=== PATIENT | female | born 1970 | race African-American/Black ===

== ENCOUNTER 2019-05-28 12:13 | Emergency (ER) | payer BC, MEDICAID ==
[~2019-05-28] VITALS: Ht 162.6 cm; Wt 99.8 kg
--- NOTE | 2019-05-28 12:28 | NUR ---
ED Nurse Note: Pt walked in from home c/o lower back pain x 1 week. Pt reports urinary frequency x 2 days. Denies fever/chills/n/v/d. Respirations even and unlabored on room air. Vitals stable as documented.
[2019-05-28 12:29] VITALS: BP 129/78
[2019-05-28] MEDS ORDERED: Methocarbamol 500mg tab ORAL ONE (13:30)
[2019-05-28 13:39] LABS: APPEARANCE,URINE CLEAR; BILIRUBIN, URINE NEGATIVE (NEGATIVE); COLOR,URINE PALE YELLOW; GLUCOSE, URINE (UA) NEGATIVE (NEGATIVE); KETONES,URINE 1+ (NEGATIVE); LEUKOCYTE ESTERASE ,URINE NEGATIVE (NEGATIVE); NITRITE,URINE NEGATIVE (NEGATIVE); PH,URINE 5 (4.5-8.0); PROTEIN,URINE 1+ (NEGATIVE); UROBILINOGEN,URINE NORMAL MG/DL (0.0-1.0)
--- NOTE | 2019-05-28 13:41 | NUR ---
ED Nurse Note: pt in radiology
--- NOTE | 2019-05-28 13:48 | Emergency Room Report ---
History of Present Illness General Chief Complaint: Back Pain-No Injury Source: Patient Present Illness HPI 48-year-old female presents to the emergency department complaining of 10 out of 10 severity low back pain that is been progressive x1 week. Patient denies appreciable trauma or fall. She denies strenuous activities. She reports she has had sciatica in the past and this is different presentation. She denies night sweats or history of cancer. Patient denies recent spinal procedures. She also is reporting having urinary frequency x2 days she denies dysuria, hematuria or urgency. She denies fevers or chills. Denies nausea, vomiting or abdominal pain. Patient states that she has been taking Aleve and Tylenol at home with no relief she states she tried tramadol from her friend which provides with some relief of her symptoms but did not take them away completely. Denies numbness tingling or loss of sensation or gross motor movements of the extremities, incontinence of bowel or bladder. Denies CP, Palpitations, LOC, AMS, dizziness, Changes in Vision, weakness or a sudden severe headache. Allergies: Coded Allergies: LATEX, NATURAL RUBBER (Verified Allergy, Unknown, 05/28/19) Patient History Past Medical History: see triage record Past Surgical History: none Pertinent Family History: none Last Menstrual Period: 05/15/19 Now: No Reviewed Nursing Documentation: PMH: Agreed; PSxH: Agreed Nursing Documentation-PM Past Medical History: No History, Except For Review of Systems All Other Systems: negative except mentioned in HPI Physical Exam Vital Signs Date Time Temp Pulse Resp B/P (MAP) Pulse Ox O2 Delivery O2 Flow Rate FiO2 05/28/19 12:19 98.4 76 16 129/78 (95) 100 Room Air Sp02 EP Interpretation: reviewed, normal General Appearance: no apparent distress, alert, GCS 15, non-toxic Head: normocephalic, atraumatic Eyes: bilateral eye normal inspection, bilateral eye PERRL ENT: hearing grossly normal, normal voice Neck: full range of motion Respiratory: lungs clear, normal breath sounds, speaking full sentences Cardiovascular #1: regular rate, rhythm Gastrointestinal: normal bowel sounds, non tender, soft, non-distended, no guarding Genitourinary: normal inspection, no CVA tenderness Musculoskeletal: normal range of motion, gait/station normal, tender - both left and right lumbar paraspinal and upper gluteal TTP, FROM with exacerbation of pain temporarily in certain flexed positions, no LE weakness, pt. is NVI, no erythema, midline bony ttp, step-offs or obvious deformity. Neurologic: alert, motor strength/tone normal, oriented x3, sensory intact, responsive, speech normal Psychiatric: judgement/insight normal Medical Decision Making PA Attestation Dr. Dunaway is my supervising Physician whom patient management has been discussed with. Diagnostic Impression: Primary Impression: Back pain Qualified Codes: M54.5 - Low back pain Additional Impression: Urinary frequency ER Course 48-year-old female presents to the emergency department complaining of 10 out of 10 severity low back pain that is been progressive x1 week. Patient denies appreciable trauma or fall. She denies strenuous activities. She reports she has had sciatica in the past and this is different presentation. She denies night sweats or history of cancer. Patient denies recent spinal procedures. She also is reporting having urinary frequency x2 days she denies dysuria, hematuria or urgency. She denies fevers or chills. Denies nausea, vomiting or abdominal pain. Patient states that she has been taking Aleve and Tylenol at home with no relief she states she tried tramadol from her friend which provides with some relief of her symptoms but did not take them away completely. Denies numbness tingling or loss of sensation or gross motor movements of the extremities, incontinence of bowel or bladder. Denies CP, Palpitations, LOC, AMS, dizziness, Changes in Vision, weakness or a sudden severe headache. Ddx considered: epidural abscess, fracture, sprain/strain, meningitis, spinal chord injury, sciatica, cauda equina, Pyelonephritis, renal calculi just to name a few. Vital signs reviewed and are WNL during ED visit. Pt. is afebrile with no signs of infection No new symptoms, and denies recent trauma. No saddle anesthesia noted, Pt. denies incontinence Neurovascular is intact ROM is limited due to pain * Mild Tenderness to palpation to paraspinal muscles of the lower back with mild midline tenderness. *Pt. describes pain today as moderate and radiates across the lower back. ORDERS: -X-ray L-Spine: WNL -UA: WNL INTERVENTIONS: - Lidoderm TP - Robaxin PO 500mg -Toradol IM -I do not identify an emergent condition at this time. With current presentation , pt. is stable for close outpatient follow up and conservative treatment. D/ w pt. to return promptly to ED with worsening or new symptoms.- Pt. verbalizes' understanding and agreement with proposed treatment plan. DISCHARGE: At this time pt. is stable for d/c to home. Will provide printed patient care instructions, and any necessary prescriptions. Care plan and follow up instructions have been discussed with the patient prior to discharge. Labs Test 05/28/19 13:02 Urine Color Pale yellow Urine Appearance Clear Urine pH 5 (4.5-8.0) Urine Specific [place] 1.020 (1.005-1.035) Urine Protein 1+ (NEGATIVE) Urine Glucose (UA) Negative (NEGATIVE) Urine Ketones 1+ (NEGATIVE) Urine Blood 3+ (NEGATIVE) Urine Nitrite Negative (NEGATIVE) Urine Bilirubin Negative (NEGATIVE) Urine Urobilinogen Normal MG/DL (0.0-1.0) Urine Leukocyte Esterase Negative (NEGATIVE) Urine RBC 2-4 /HPF (0 - 2) Urine WBC 0-2 /HPF (0 - 2) Urine Squamous Epithelial Cells Few /LPF (NONE/OCC) Urine Bacteria Few /HPF (NONE) Urine Mucus Few /LPF (NONE/OCC) Other X-Ray Diagnostic Results Other X-Ray Diagnostic Results : X-Ray ordered: L-Spine X-ray # of Views/Limited Vs Complete: 3 View Indication: Pain EP Interpretation: Yes ROSHAN Xray: Interpretation reviewed, by supervising MD, and agrees with findings. Interpretation: no dislocation, no soft tissue swelling, no fractures Impression: No acute disease Electronically Signed by: Katalina Palacios PA-C Last Vital Signs Date Time Temp Pulse Resp B/P (MAP) Pulse Ox O2 Delivery O2 Flow Rate FiO2 05/28/19 12:29 98.4 84 16 129/78 100 Room Air Disposition: HOME, SELF-CARE Condition: Stable Scripts Lidocaine Patch* (Lidoderm Patch*) 1 Each Adh..patch 1 PATCH TOPIC DAILY, #30 PATCH 0 Refills Patch(es) may remain in place for up to 12 hours in any 24-hour period. Prov: Katalina Palacios 05/28/19 Phenazopyridine Hcl* (PYRIDIUM*) 200 Mg Tablet 200 MG ORAL THREE TIMES A DAY for 3 Days, #9 TAB 0 Refills Prov: Katalina Palacios 05/28/19 Ibuprofen* (MOTRIN*) 600 Mg Tablet 600 MG ORAL THREE TIMES A DAY, #30 TAB 0 Refills Prov: Katalina Palacios 05/28/19 Methocarbamol* (ROBAXIN-750*) 750 Mg Tablet 750 MG PO QID, #28 TAB 0 Refills Prov: Katalina Palacios 05/28/19 Referrals: NOT CHOSEN IPA/MD,REFERRING (PCP) Patient Instructions: Back Pain, Adult, Urinary Frequency Additional Instructions: Take medications as directed. !! Do not drink alcohol, drive, or operate heavy machinery while taking Robaxin ( Muscle Relaxers) as this may cause drowsiness. !! Follow up with a Primary Care Provider in 3-5 days, even if your symptoms have resolved. --Please review list of primary care clinics, if you do not already have a primary care provider Return sooner to ED if new symptoms occur, or current symptoms become worse. - Please note that this Emergency Department Report was dictated using [employer] software, occasionally this can lead to erroneous entry secondary to interpretation by the dictation equipment. Katalina Palacios May 28, 2019 13:48
[2019-05-28] MEDS ORDERED: Ketorolac 30mg Inj IM ONE (14:15)
[2019-05-28] MEDS ORDERED: ROBAXIN-750750 MG PO (14:16)
[2019-05-28] MEDS ORDERED: IBUPROFEN600 MG ORAL (14:16)
[2019-05-28] MEDS ORDERED: PHENAZOPYRIDIN200 MG ORAL (14:16)
[2019-05-28 14:20] VITALS: BP 131/74
--- NOTE | 2019-05-28 14:20 | NUR ---
ER DISCHARGE NOTE: Patient is cleared to be discharged per ERMD, pt is aox4, on room air, with stable vital signs as documented. pt was given dc and prescription instructions and was able to verbalize understanding, pt id band removed. pt is able to ambulate with steady gait. pt took all belongings.
[2019-05-28] MEDS ORDERED: LIDODERM700 M1 TOPIC (14:21)
--- NOTE | 2019-05-29 10:03 | Diagnostic Imaging Report ---
Indication: 10 out of 10 severity low back pain progressive for one week Technique: 3 views of the lumbar spine Comparison: None Findings: Bony alignment is normal. Vertebral body heights are preserved. The disc spaces are preserved. Pedicles are intact. Sacral arches are preserved. Sacral iliac joint spaces are preserved Impression: Negative
== END 2019-05-28 14:20 | disposition home or self-care (01) ==
LOC: EMR 12:45
DX: M54.5 Low back pain (principal); R35.0 Frequency of micturition; Z91.040 Latex allergy status
CPT/HCPCS: 72020; 81003; 96372; 99283; J1885